=== PATIENT | female | born 1945 | race Caucasian/White ===

== ENCOUNTER 2024-08-15 17:58 | Emergency (ER) | payer MEDICARE, OTHER ==
[~2024-08-15] VITALS: Ht 152.4 cm; Wt 54.5 kg
[2024-08-15 18:43] LABS: BASOPHILS % (AUTO) 0.5 % (0-1); EOSINOPHILS % (AUTO) 0.1 % (0-6); HEMATOCRIT 40.8 % (35.0-45.0); HEMOGLOBIN 14.2 g/dl (12.0-16.0); LYMPHOCYTES # (AUTO) 1.5 X10'3 (1.1-4.8); LYMPHOCYTES % (AUTO) 16.9 % (21-51); MEAN CORPUSCULAR HEMOGLOBIN 30.3 PG (27.0-31.0); MEAN CORPUSCULAR HGB CONC 34.8 g/dL (33.0-36.5); MEAN PLATELET VOLUME 7.2 FL (7.4-10.4); MONOCYTES # (AUTO) 0.4 X10'3 (0-0.9); NEUTROPHILS # (AUTO) 6.8 X10'3 (1.8-7.7); NEUTROPHILS % (AUTO) 77.5 % (42-75); PLATELET COUNT 424 X10'3 (140-440); RED BLOOD COUNT 4.68 X10'6 (4.20-5.60); RED CELL DISTRIBUTION WIDTH 14.6 % (11.5-14.5); WHITE BLOOD COUNT 8.7 X10'3 (4.5-11.0)
[2024-08-15 18:56] LABS: ALANINE AMINOTRANSFERASE 19 U/L (12-78); ALBUMIN 4.2 G/DL (3.4-5.0); ALBUMIN/GLOBULIN RATIO 1.1 (1.1-1.5); ALKALINE PHOSPHATASE 66 IU/L (46-116); ANION GAP 12 (8-16); ASPARTATE AMINO TRANSFERASE 12 U/L (10-37); BILIRUBIN,TOTAL 0.7 MG/DL (0.1-1.0); BLOOD UREA NITROGEN 21 MG/DL (7-18); BUN/CREATININE RATIO 15.1 (10.0-20.0); CALCIUM 11.4 MG/DL (8.5-10.1); CHLORIDE 100 MMOL/L (99-107); CREATININE 1.39 MG/DL (0.40-0.90); GLUCOSE 112 MG/DL (70-104); POTASSIUM 3.2 MMOL/L (3.5-5.1); SODIUM 138 MMOL/L (135-145); TOTAL CARBON DIOXIDE 26.2 MMOL/L (24-32); TOTAL PROTEIN 8.1 G/DL (6.4-8.2); eCRCL 25 ML/MIN; eGFR 37 ML/MIN
[2024-08-15 19:05] LABS: PRO BRAIN NATRIURETIC PEPTIDE 789 PG/ML (0-450)
[2024-08-15] MEDS ORDERED: LISI20TA28 PO (19:11)
[2024-08-15] MEDS ORDERED: FENO48TA15 PO (19:14)
[2024-08-15] MEDS ORDERED: CHLO25TA10 PO (19:14)
[2024-08-15] MEDS ORDERED: TRAM50TA2 PO (19:20)
[2024-08-15] MEDS ORDERED: METO50TA17 PO (19:20)
[2024-08-15] MEDS ORDERED: MELO-102 PO (19:20)
[2024-08-15] MEDS ORDERED: METH-797 PO (19:22)
[2024-08-15] MEDS: ringers solution, lacted 1,000 ML IV ONE (19:57)
[2024-08-15 21:27] LABS: MAGNESIUM 1.6 MG/DL (1.5-2.4); PHOSPHORUS 2.4 MG/DL (2.3-4.5)
[2024-08-15] MEDS ORDERED: iohexol 300mg/ml 100ml inj. ONE (21:30)
[2024-08-15 22:45] LABS: BILIRUBIN,URINE NEGATIVE (Neg); CLARITY,URINE CLEAR (Clear); COLOR,URINE YELLOW (Yellow); GLUCOSE, URINE NEGATIVE (Neg); KETONES,URINE NEGATIVE (Neg); LEUKOCYTE ESTERASE ,URINE NEGATIVE (Neg); NITRITES, URINE NEGATIVE (Neg); OCCULT BLOOD,URINE TRACE-INTACT (Neg); PROTEIN,URINE NEGATIVE (Neg); UROBILINOGEN,URINE 0.2 E.U/dL (0.2-1.0)
[2024-08-15 22:49] LABS: UA COLLECTION TYPE STRAIGHT CATH
[2024-08-15 22:50] LABS: BACTERIA,URINE FEW /HPF (Neg); RBC,URINE 0-2 /HPF (0-2); SQUAMOUS EPITHELIAL CELL,UR FEW /LPF (FEW); WBC,URINE 0-4 /HPF (0-4)
[2024-08-16] MEDS ORDERED: POTASSIUM CHLORIDE 20 MEQ/15 ML oral solution PO SCH (01:05)
[2024-08-16] MEDS ORDERED: POTA20PA40 PO (01:07)
[2024-08-16 01:18] VITALS: BP 129/62; PULSE 101; RESP 18; TEMP 98; O2SAT 100
[2024-08-16] MEDS: POTASSIUM CHLORIDE 20 MEQ/15 ML oral solution PO ONE (01:21)
== END 2024-08-16 01:32 | disposition home or self-care (01) ==
LOC: ER 21:18
DX: R19.7 Diarrhea, unspecified (principal); R51.9 Headache, unspecified; I12.9 Hypertensive chronic kidney disease with stage 1 through stage 4 chronic kidney disease, or unspecified chronic kidney disease; N18.9 Chronic kidney disease, unspecified; Z79.899 Other long term (current) drug therapy; Z20.822 Contact with and (suspected) exposure to COVID-19
CPT/HCPCS: 36415; 70450; 71045; 74177; 80053; 81001; 83735; 83880; 84100; 84484; 85025; 87502; 87503; 87811; 93005; 96360; 99285; C1758; J7120; Q9967; A6250

== ENCOUNTER 2024-10-08 14:09 | Emergency (ER) | payer MEDICARE, OTHER ==
[~2024-10-08] VITALS: Ht 157.5 cm; Wt 53.6 kg
[~2024-10-08 14:09] MED LIST: CHLO25TA10 PO; FENO48TA15 PO; LISI20TA28 PO; MELO-102 PO; METH-797 PO; METO50TA17 PO; POTA20PA40 PO; TRAM50TA2 PO
[2024-10-08] MEDS ORDERED: CEPH-585 PO (15:45)
[2024-10-08] MEDS ORDERED: VALA100031 PO (15:45)
[2024-10-08] MEDS: ketorolac trometh 15mg/ml vial 15 MG/ML ML IM ONE (15:52)
[2024-10-08 16:02] VITALS: BP 157/79; PULSE 78; RESP 16; TEMP 98.7; O2SAT 99
== END 2024-10-08 16:00 | disposition home or self-care (01) ==
LOC: ER 14:10
DX: R21 Rash and other nonspecific skin eruption (principal); M79.651 Pain in right thigh; E78.00 Pure hypercholesterolemia, unspecified; I10 Essential (primary) hypertension
CPT/HCPCS: 96372; 99284; J1885